=== PATIENT | male | born 1995 | race Caucasian/White ===

== ENCOUNTER 2017-10-28 01:09 | Emergency (ER) | payer BC ==
[~2017-10-28] VITALS: Ht 188 cm; Wt 84.3 kg
[~2017-10-28 01:09] MED LIST: ONDA4TAB7 SL
[2017-10-28 01:28] VITALS: Ht 188 cm; Wt 84.3 kg
[2017-10-28] MEDS ORDERED: LIDOCAINE/EPINEPHRINE 1% 20 ML VIAL ONE (01:29)
[2017-10-28] MEDS ORDERED: LIDO/EPINEPHRINE/SOD BICARB 20 ML VIAL INFIL ONE ×3 (01:31→01:44)
[2017-10-28] MEDS ORDERED: LIDOCAINE HCL 1% 20 ML VIAL ONE (01:31)
--- NOTE | 2017-10-28 03:52 | EMERGENCY ROOM VISIT NOTE ---
History First contact with patient: 01:25 Chief Complaint: FALL Stated Complaint: FALL ON STAIRS-HIT FACE AND CUT HANDS History of Present Illness The patient is a 22 year old male who presents to the Emergency Room with complaints of a fall. The patient reports that he was walking upstairs carrying a glass of champagne flute when he tripped and fell. He states that the glass shattered, causing several cuts to his face, right wrist and the back of his head. The patient reports there is active bleeding. He rates his pain a 2/10. His tetanus is up-to-date. He denies any neck pain, chest pain, back pain or shortness of breath. There was no loss of consciousness at the time of injury. He denies nausea/vomiting, confusion, numbness, weakness, blurred vision or slurred speech. Review of Systems A complete 10 point review of systems was reviewed with the patient with pertinent positives and negatives as per history of present illness. All else were negative. Past Medical/Surgical History Medical Problems: (1) Progenia (2) Ulcerative colitis Surgical Problems: (1) S/P ACL surgery Family History Patient reports no known family medical history. Social History Smoking Status: Never Smoker Alcohol Use: occasionally Marital Status: in relationship Housing Status: lives with significant other Occupation Status: employed Current/Historical Medications Scheduled Cephalexin Monohydrate (Keflex), 500 MG PO QID Physical Exam Vital Signs Date Time Temp Pulse Resp B/P (MAP) Pulse Ox O2 Delivery O2 Flow Rate FiO2 10/28/17 04:02 74 18 130/64 99 Room Air 10/28/17 02:58 78 18 134/83 99 Room Air 10/28/17 01:28 120 20 135/95 99 Room Air Physical Exam VITALS: Vitals are noted on the nurse's note and reviewed by myself. Vital signs stable. GENERAL: This is a 22-year-old male, in no acute distress, well-developed well- nourished. SKIN: There are multiple abrasions to the face, shoulders and upper back. There is a 2 cm curved laceration extending from the tip of the nose through the right nostril. There is a 4 cm bleeding laceration to the posterior aspect of the scalp. There is a 3 cm not gaping laceration to the left cheek with mild bleeding from the central portion of the laceration. There is a 2.5 cm laceration to the ulnar aspect of the ventral right wrist. No ligaments or blood vessels seen in the base of the wound. There is a small area of avulsed skin to the left lower lip which measures approximately 1 cm. HEAD: Lacerations and abrasions as described above. Otherwise normocephalic, atraumatic. EARS: External auditory canals clear, tympanic membranes pearly meléndez without erythema or effusion bilaterally. EYES: Pupils equal round and reactive to light and accommodation. Extraocular movements intact. NOSE: Laceration to the distal nose and right nostril as described above. MOUTH: Mucous membranes moist. No loose or chipped teeth NECK: Supple without nuchal rigidity. Cervical spine is nontender. HEART: Regular rate and rhythm without murmurs gallops or rubs. LUNGS: Clear to auscultation bilaterally without wheezes, rales or rhonchi. CHEST: No tenderness of the thorax. MUSCULOSKELETAL: Strength 5/5 throughout. NEURO: Patient was alert and oriented to person place and time. Medical Decision & Procedures ER Provider Diagnostic Interpretation: CT HEAD: No acute infarct, hemorrhage, mass, or edema. Minimal mucosal thickening of the paranasal sinuses. No acute osseous abnormality. CT FACIAL: No acute facial bone fracture identified. Minimal mucosal thickening in the paranasal sinuses. Globes and orbits are intact. No evidence of fracture. Radiologist: Davdi Jean MD Procedure Verbal consent was obtained to perform the procedures. SCALP: Using sterile technique the wound was cleaned with Betadine. The area was sterilely draped. 6 ml of 1% buffered lidocaine with epinephrine was used to anesthetize the posterior scalp laceration. Once the patient was anesthetized, the wound was copiously irrigated under pressure with sterile saline. No foreign bodies seen in the base of the wound. The laceration was repaired using 6 simple interrupted 4-0 nylon sutures with the wound edges being well approximated. NOSE: Using sterile technique the wound was cleaned with Betadine. The area was sterilely draped. 2 ml of 1% buffered lidocaine was used to anesthetize the laceration of the nose. Once the patient was anesthetized, the wound was copiously irrigated under pressure with sterile saline. The laceration was repaired using 8 simple interrupted 5-0 nylon sutures with the wound edges being well approximated. RIGHT WRIST: Using sterile technique the wound was cleaned with Betadine. The area was sterilely draped. 3 ml of 1% buffered lidocaine with epinephrine was used to anesthetize the wrist laceration. Once the patient was anesthetized, the wound was copiously irrigated under pressure with sterile saline. The wound was explored and there were no deep structures injured such as tendons, bone, or significant blood vessels. The laceration was repaired using 5 simple interrupted 5-0 nylon sutures with the wound edges being well approximated. LEFT CHEEK: Using sterile technique the wound was cleaned with Betadine. The area was sterilely draped. 1 ml of 1% buffered lidocaine was used to anesthetize the laceration. Once the patient was anesthetized, the wound was copiously irrigated under pressure with sterile saline. The laceration was repaired using 1 simple interrupted 6-0 nylon sutures in the center of the wound. Dermabond was applied to the remainder of the laceration. LIP: The lip laceration was cleaned. There was a small area of avulsed skin which was placed into anatomic position. Dermabond was applied to the wound with good alignment. POSTERIOR NECK: Using sterile technique the wound was cleaned with Betadine. The area was sterilely draped. 1 ml of 1% buffered lidocaine was used to anesthetize the laceration. Once the patient was anesthetized, the wound was copiously irrigated under pressure with sterile saline. The laceration was repaired using 2 simple interrupted 5-0 nylon sutures with the wound edges being well approximated. Medical Decision The patient was evaluated as above. He sustained lacerations to the posterior scalp, posterior neck, left cheek, lip, right wrist and nose. These were repaired as noted in the procedure section. Patient will be placed on Keflex to prevent infection. CT of the head and facial bones were performed and read by stat rad and were unremarkable. Patient tolerated the laceration repair very well. Suture care instructions were discussed with the patient. He verbalized understanding of my assessment and treatment plan and was discharged home in good condition. Medication Reconcilliation Current Medication List: was personally reviewed by me Blood Pressure Screening Patient's blood pressure: Normal blood pressure Impression Primary Impression: Multiple lacerations Additional Impression: Closed head injury Departure Information Dispostion Home / Self-Care Condition GOOD Prescriptions Cephalexin Monohydrate (Keflex) 500 Mg Cap 500 MG PO QID for 3 Days, #12 CAP Prov: Abril Zuñiga TAMANNA Franco 10/28/17 Referrals No Doctor, Assigned (PCP) Patient Instructions [facility] Additional Instructions You have received 9 sutures on your face. These sutures are NOT dissolvable and WILL need to be removed by a health care provider in 5-7 days. You can return to the Emergency Department or contact your Primary Care Provider to have the sutures removed. You have received 6 sutures in the back of your head, 2 sutures on the back of your neck, and 5 sutures in your right wrist. These sutures will need to be removed in 10-12 days by a health care provider. Proper wound care is essential for adequate wound healing and infection prevention. You can shower and clean the wound with soap and water. Do not scour over the wound, pat dry with a towel. Do not submerse the wound (i.e. bathe or dish wash) until the sutures have been removed. You can use an antibiotic ointment with a dressing over the wound for the next 3-4 days. After this time you may leave the wound dry and open to the air. If crust develops over the wound you can use a Q-tip to apply a 1:1 peroxide:water solution to clean the wound. Look for signs of infection of the wound including: increased pain, swelling, foul discharge, streaking, or increased temperature. If any of these are noticed you should return to the Emergency Department for further assessment and treatment. As with any laceration you may have received nerve damage to the surrounding tissues. This damage may or may not be permanent. You should keep the area covered with sunscreen for the first 6 months to 1 year when at risk for exposure to help minimize scarring. You can also use scar reducing creams or Vitamin E oil to help minimize scarring. For pain control, you can use the following [id number] medicines (if >12 yo): - Regular strength (325mg/tab) Tylenol (acetaminophen) 2 tabs every 4-6 hours as needed. Do not exceed 12 tablets in a 24 hour period. Avoid taking more than 4 grams (4000 mg) of Tylenol per day. This includes any other sources of acetaminophen you may take on a regular basis. - Regular strength (200 mg/tab) Advil (ibuprofen) 1-2 tabs every 4-6 hours as needed. Do not exceed a dose of 3200 mg per day. Return to the emergency department if your symptoms worsen despite treatment course outlined above. Problem Qualifiers Additional Impression: Closed head injury Encounter type: initial encounter Qualified Codes: S09.90XA - Unspecified injury of head, initial encounter
[2017-10-28 04:02] VITALS: BP 130/64; PULSE 74; O2SAT 99
[2017-10-28] MEDS ORDERED: CEPH500C PO (05:16)
--- NOTE | 2017-10-28 06:50 | DIAGNOSTIC IMAGING REPORT ---
HEAD WITHOUT CONTRAST (CT) CLINICAL HISTORY: 22 years-old Male presenting with head injury, fall. TECHNIQUE: Multidetector CT imaging of the head was performed without the use of intravenous contrast. IV contrast: None. A dose lowering technique was used consistent with the principles of ALARA (as low as reasonably achievable). COMPARISON: None. CT DOSE (mGy.cm): The estimated cumulative dose is 776.13 mGy.cm. FINDINGS: Hydrographic Surveyor topogram: Unremarkable. Ventricles and sulci normal in size. Brain parenchyma normal in appearance with preserved meléndez-white differentiation. No mass effect or midline shift. No hemorrhage or acute territorial infarct. No extra-axial fluid collection. Paranasal sinuses and mastoid air cells clear. Calvarium intact. Laceration suspected over the right parietal region with an overlying bandage in place. No significant subcutaneous hematoma. No subjacent osseous injury. IMPRESSION: 1. No acute intracranial abnormality. Electronically signed by: Jon Mayer M.D. 10/28/2017 6:48 AM Dictated Date/Time: 10/28/2017 6:45 AM
--- NOTE | 2017-10-28 07:20 | DIAGNOSTIC IMAGING REPORT ---
CT SCAN OF THE FACIAL BONES WITHOUT IV CONTRAST CLINICAL HISTORY: Trauma. Fall. Nasal injury. COMPARISON STUDY: CT of the brain performed concurrently on 10/28/2017. TECHNIQUE: High-resolution CT scan of the facial bones is performed. Images are reviewed in the axial, sagittal, and coronal planes. IV contrast was not administered for this examination. A dose lowering technique was utilized adhering to the principles of ALARA. FINDINGS: The skeletal structures are well mineralized. There is no evidence of facial bone fracture. The bony orbits are intact and the orbital contents are within normal limits. The zygomatic arches, nasal bones, and pterygoid plates are preserved. The maxilla and mandible are intact. There are no layering blood products within the paranasal sinuses. The sinuses and mastoids are clear. The visualized calvarium and upper cervical spine are maintained. Partially imaged brain parenchyma is within normal limits. IMPRESSION: There is no evidence of facial bone fracture. Electronically signed by: Tomas Reis M.D. 10/28/2017 7:19 AM Dictated Date/Time: 10/28/2017 7:07 AM
--- NOTE | 2017-10-30 11:08 | EDITING REQUIRED CODING QUERY ---
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 Please assist us with the question(s) below: Please document the length of the posterior neck laceration. Please type the length in cm within the parenthesis () below. Posterior Neck laceration is ( 1.5 ) cm. Thank you Jacinda Thomas
== END 2017-10-28 04:09 | disposition home or self-care (01) ==
LOC: C.EDB 01:10 → C.EDA 04:09
DX: S61.511A Laceration without foreign body of right wrist, initial encounter (principal); S01.01XA Laceration without foreign body of scalp, initial encounter; S01.21XA Laceration without foreign body of nose, initial encounter; S01.412A Laceration without foreign body of left cheek and temporomandibular area, initial encounter; S09.90XA Unspecified injury of head, initial encounter; W10.9XXA Fall (on) (from) unspecified stairs and steps, initial encounter; S00.81XA Abrasion of other part of head, initial encounter; S40.211A Abrasion of right shoulder, initial encounter; S40.212A Abrasion of left shoulder, initial encounter; S20.419A Abrasion of unspecified back wall of thorax, initial encounter